=== PATIENT | male | born 1955 | race Caucasian/White ===

== ENCOUNTER 2021-10-11 13:03 | Outpatient (REF) | payer MEDICARE, SELFPAY ==
--- NOTE | ~2021-10-11 | MR_ITS ---
EXAMINATION: MRI OF THE BRAIN WITHOUT CONTRAST CLINICAL INFORMATION: 66-year-old with movement disorder, dyskinesia and suspicion for basal ganglia lesion. COMPARISON: None TECHNIQUE: Multiplanar multisequence MR imaging of the brain was done without IV contrast. FINDINGS: Brain Volume: Within normal limits within the limitations of qualitative assessment. 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 Brain and Meninges: There are moderately extensive patchy and punctate foci of FLAIR/T2 signal hyperintensity within the deep and periventricular white matter of both cerebral hemispheres with confluent periventricular T2 hyperintensity as well, which is somewhat T1 hypointense. These findings are most consistent with chronic ischemic microangiopathy. Chronic ischemic changes appear to extend into the deep capsular structures bilaterally and there is a chronic lacunar infarct bordering the genu of the right internal capsule, globus pallidus and ventromedial thalamus. Punctate T2 hyperintensities are noted in the lesly on the right also likely reflecting chronic ischemic microangiopathy. Gradient refocused imaging demonstrates no evidence for hemorrhage, hemosiderin staining or abnormal mineral deposition. No extra-axial fluid collections, space-occupying process or mass effect are identified. There is etat crible at the level of the basal ganglia bilaterally. DWI sequence demonstrates no restricted diffusion. Specifically, there is no evidence for acute or subacute cerebral ischemia. Ventricles and Subarachnoid Spaces: The ventricular system and subarachnoid spaces are within normal limits for the patient's age. There is no hydrocephalus. Orbital Structures: The visualized orbital structures are grossly unremarkable within the limitations of the study. Vascular: Signal voids are noted in the visualized major intracranial vessels. Osseous Structures, Sinuses/Mastoids, Extracranial Soft Tissues: There is some mucosal thickening in the frontal, ethmoid and maxillary sinuses with a 2 cm retention cyst in the left maxillary sinus. Nasal septal deviation to the right is noted. Visualized extracranial soft tissue structures are grossly unremarkable. Bone marrow signal intensity appears homogenous. MR/MR head/brain wo con IMPRESSION: 1. Chronic ischemic microangiopathy in the white matter of both cerebral hemispheres and deep capsular structures with a probable remote lacunar infarct in the deep right basal ganglia bordering the globus pallidus, genu of the right internal capsule and ventromedial thalamus. 2. No acute intracranial process. No evidence for subacute or acute infarct, hemorrhage, extra-axial fluid collection, space-occupying process, mass effect or hydrocephalus. 3. Sinonasal findings as discussed above.
== END 2021-10-11 13:04 | disposition home or self-care (01) ==
LOC: HO.MRI 13:03
PROVIDERS: Visit Provider Psychiatry & Neurology Neurology
DX: G24.9 Dystonia, unspecified (principal)
CPT/HCPCS: 70551

== ENCOUNTER → 2022-03-07 14:13 | Outpatient (BNVA) | payer MEDICARE, SELFPAY | PROVIDERS: PCP Internal Medicine; Visit Provider Psychiatry & Neurology Psychiatry | DX: F98.8 Other specified behavioral and emotional disorders with onset usually occurring in childhood and adolescence (principal); F32.5 Major depressive disorder, single episode, in full remission; E78.5 Hyperlipidemia, unspecified | CPT/HCPCS: 90833; 99212 ==

== ENCOUNTER → 2022-08-14 14:31 | Outpatient (BNVA) | payer MEDICARE, SELFPAY | PROVIDERS: PCP Internal Medicine; Visit Provider Psychiatry & Neurology Psychiatry | DX: F32.5 Major depressive disorder, single episode, in full remission (principal); F98.8 Other specified behavioral and emotional disorders with onset usually occurring in childhood and adolescence; Z79.899 Other long term (current) drug therapy | CPT/HCPCS: 99212 ==

== ENCOUNTER 2022-11-13 14:33 | Outpatient (AMB) | payer MEDICARE, SELFPAY ==
--- NOTE | 2022-11-13 14:28 | MHC.OFFVISPS ---
Intake Intake Visit Reasons: depression Allergies No Known Allergies Allergy (Verified 03/07/22 14:19) HPI- Psychiatric Chief Complaint: depression HPI Narrative: Pt has generally been doing well mood stable has difficulty at times staying busy enjoys bldg things does well with structure. No new medical problems some periods of mild melancholy at times but generally has been doing well. Unclear structure over the winter does tend to have seasonal depression continue sertraline modafinil. Movement disorder appears to be about the same according to the patient Past Psychiatric History: hx depression recurrent anxiety ADD Mental Status Exam Mental Status Exam Narrative: Mental Status Exam Narrative: Appearance: Casually dressed no abnormal movements facial tics or or dyskinesia noted on exam Behavior: Cooperative appropriate psychomotor: Within normal limits Speech: Normal volume and prosody Thought proccess logical and goal-directed Thought content: Future oriented no self-harming thoughts Mood: Euthymic Affect: Appropriate to mood full affect SI:denies HI:denies VH/AH:none Delusions: None Insight/judgment: Good insight and judgment Memory/cog: Intact Assessment and Plan Assessment & Plan (1) ADD (attention deficit disorder) without hyperactivity: Status: Acute Code(s): F98.8 - Other specified behavioral and emotional disorders with onset usually occurring in childhood and adolescence (2) Major depression in remission: Status: Acute Code(s): F32.5 - Major depressive disorder, single episode, in full remission Plan Issues related to need for plan and ongoing structure to help with quality of life prevent depressive symptoms continue modafinil in sertraline no new medical problems quality of life with his continues to go well Medications: Refilled modafinil 200 mg PO QAM 30 tabs 2RF sertraline 100 mg PO DAILY 30 tabs 2RF Counseling and coordination of Care Pt. Self Management counseling: Behavior activation and Cognitive restructuring Medication management counseling: Effectiveness, Side effects and Dosing range Diagnosis and Prognosis Counseling: Adequacy of current interventions Details: I spent [37] minutes reviewing the record, seeing the patient and documenting in the medical record. Counseling provided to the patient/caregiver as outlined below. Addressed patient/caregiver concerns regarding current medication regime including effective adherence. Addressed patient/caregiver concerns regarding diagnosis and prognosis including accuracy of diagnosis, prognosis over time, impact of diagnosis. Addressed patient/caregiver concerns regarding impact of recent stressors. 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
== END 2022-11-13 14:59 | disposition home or self-care (01) ==
LOC: HO.HOP 14:33
PROVIDERS: PCP Internal Medicine; Visit Provider Psychiatry & Neurology Psychiatry
DX: F98.8 Other specified behavioral and emotional disorders with onset usually occurring in childhood and adolescence (principal); F32.5 Major depressive disorder, single episode, in full remission
CPT/HCPCS: 99214

== ENCOUNTER → 2022-11-13 14:33 | Outpatient (BNVA) | payer MEDICARE, SELFPAY | PROVIDERS: PCP Internal Medicine; Visit Provider Psychiatry & Neurology Psychiatry | DX: F98.8 Other specified behavioral and emotional disorders with onset usually occurring in childhood and adolescence (principal); F32.5 Major depressive disorder, single episode, in full remission | CPT/HCPCS: 99212 ==

== ENCOUNTER 2023-04-29 14:28 | Outpatient (AMB) | payer MEDICARE, SELFPAY ==
--- NOTE | 2023-04-29 14:25 | MHC.OFFVISPS ---
Intake Intake Visit Reasons: depression Allergies No Known Allergies Allergy (Verified 03/07/22 14:19) Medication List - Last Reconciled 04/29/23 by Maxx Haynes MD atorvastatin 20 mg PO DAILY esomeprazole magnesium 40 mg PO DAILY modafinil 200 mg PO QAM pramipexole 1 mg PO QPM sertraline 100 mg PO DAILY warfarin mg PO HPI- Psychiatric Chief Complaint: depression Intake Note: bp reported 120/71 HPI Narrative: Patient generally doing well movement disorder appears stable not overly depressed or anxious. Has been doing well generally with his . 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 but appears occupied and future oriented doing well generally with sertraline and are modafinil no complaints side effects Past Psychiatric History: hx depression recurrent anxiety ADD Mental Status Exam Mental Status Exam Narrative: Mental Status Exam Narrative: Appearance: Casually dressed no abnormal movements facial tics or or dyskinesia noted on exam 04/29/23 Behavior: Cooperative appropriate psychomotor: Within normal limits Speech: Normal volume and prosody Thought proccess logical and goal-directed Thought content: Future oriented no self-harming thoughts Mood: Euthymic Affect: Appropriate to mood full affect SI:denies HI:denies VH/AH:none Delusions: None Insight/judgment: Good insight and judgment Memory/cog: Intact Assessment and Plan Assessment & Plan (1) ADD (attention deficit disorder) without hyperactivity: Status: Acute Code(s): F98.8 - Other specified behavioral and emotional disorders with onset usually occurring in childhood and adolescence (2) Major depression in remission: Status: Acute Code(s): F32.5 - Major depressive disorder, single episode, in full remission (3) Restless leg syndrome: Status: Acute Code(s): G25.81 - Restless legs syndrome Plan Issues related to correction structure ADD multiple things patient has done over the years. Patient currently content financially stable no significant symptoms wishes to continue on present regimen. No evidence of movement disorder worsening with sertraline and modafinil Medications: Refilled modafinil 200 mg PO QAM 30 tabs 2RF sertraline 100 mg PO DAILY 30 tabs 2RF modafinil 200 mg PO QAM 30 tabs 2RF Counseling and coordination of Care Details-Self Mgmt counseling: Issues related to correction Details: I spent [] minutes reviewing the record, seeing the patient and documenting in the medical record. Counseling provided to the patient/caregiver as outlined below. Addressed patient/caregiver concerns regarding current medication regime including effective adherence. Addressed patient/caregiver concerns regarding diagnosis and prognosis including accuracy of diagnosis, prognosis over time, impact of diagnosis. Addressed patient/caregiver concerns regarding impact of recent stressors. 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
== END 2023-04-29 14:30 | disposition home or self-care (01) ==
LOC: HO.HOP 14:28
PROVIDERS: PCP Internal Medicine; Visit Provider Psychiatry & Neurology Psychiatry
DX: F98.8 Other specified behavioral and emotional disorders with onset usually occurring in childhood and adolescence (principal); F32.5 Major depressive disorder, single episode, in full remission; G25.81 Restless legs syndrome
CPT/HCPCS: 90833; 99213

== ENCOUNTER → 2023-04-29 14:28 | Outpatient (BNVA) | payer MEDICARE, SELFPAY | PROVIDERS: PCP Internal Medicine; Visit Provider Psychiatry & Neurology Psychiatry | DX: F32.5 Major depressive disorder, single episode, in full remission (principal); F98.8 Other specified behavioral and emotional disorders with onset usually occurring in childhood and adolescence; G25.81 Restless legs syndrome; Z79.899 Other long term (current) drug therapy | CPT/HCPCS: 99212 ==

== ENCOUNTER 2023-10-16 13:39 | Outpatient (AMB) | payer MEDICARE, SELFPAY ==
--- NOTE | 2023-10-16 14:24 | MHC.OFFVISPS ---
Intake Intake Visit Reasons: depression Allergies No Known Allergies Allergy (Verified 03/07/22 14:19) HPI- Psychiatric Chief Complaint: depression HPI Narrative: Patient has generally been doing well mood mostly stable some periods of mild dysphoria. Does find ways to keep himself occupied enjoys home projects. Tick disorder seems to be generally in control doing well with modafinil in staying focused alert generally on task and with more consistent mood this is in addition to sertraline Past Psychiatric History: hx depression recurrent anxiety ADD Mental Status Exam Mental Status Exam Narrative: Mental Status Exam Narrative: Appearance: Casually dressed no abnormal movements noted no tics Behavior: Cooperative psychomotor: Within normal limits Speech: Normal volume and prosody Thought proccess logical and goal-directed Thought content: Future oriented no self-harming thoughts some acknowledgement regarding mild tendency toward depression Mood: Euthymic Affect: Appropriate to mood full affect SI:denies HI:denies VH/AH:none Delusions: None Insight/judgment: Good insight and judgment Memory/cog: Intact Assessment and Plan Assessment & Plan (1) ADD (attention deficit disorder) without hyperactivity: Status: Acute Code(s): F98.8 - Other specified behavioral and emotional disorders with onset usually occurring in childhood and adolescence (2) Major depression in remission: Status: Acute Code(s): F32.5 - Major depressive disorder, single episode, in full remission Plan no change in meds extensive discussion re health exercise eating role of exercise in control of mood energy ambition continue modafinil and sertraline. Also discussed with patient longer-term option if stable of having his primary care review his medications Medications: Refilled modafinil 200 mg PO QAM 30 tabs 2RF sertraline 100 mg PO DAILY 90 tabs 1RF modafinil 200 mg PO QAM 30 tabs 2RF Counseling and coordination of Care Pt. Self Management counseling: Exercise and Sleep hygiene Medication management counseling: Effectiveness, Side effects and Dosing range Diagnosis and Prognosis Counseling: Adequacy of current interventions Details: I spent [30] minutes reviewing the record, seeing the patient and documenting in the medical record. Counseling provided to the patient/caregiver as outlined below. Addressed patient/caregiver concerns regarding current medication regime including effective adherence. Addressed patient/caregiver concerns regarding diagnosis and prognosis including accuracy of diagnosis, prognosis over time, impact of diagnosis. Addressed patient/caregiver concerns regarding impact of recent stressors. 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
== END 2023-10-16 17:59 | disposition home or self-care (01) ==
LOC: HO.HOP 13:39
PROVIDERS: PCP Internal Medicine; Visit Provider Psychiatry & Neurology Psychiatry
DX: F98.8 Other specified behavioral and emotional disorders with onset usually occurring in childhood and adolescence (principal); F32.5 Major depressive disorder, single episode, in full remission
CPT/HCPCS: 99214

== ENCOUNTER → 2023-10-16 13:39 | Outpatient (BNVA) | payer MEDICARE, SELFPAY | PROVIDERS: PCP Internal Medicine; Visit Provider Psychiatry & Neurology Psychiatry | DX: F32.5 Major depressive disorder, single episode, in full remission (principal); F98.8 Other specified behavioral and emotional disorders with onset usually occurring in childhood and adolescence | CPT/HCPCS: 99212 ==

== ENCOUNTER 2024-02-03 11:35 | Outpatient (AMB) | payer MEDICARE, SELFPAY ==
--- NOTE | 2024-02-03 11:40 | MHC.OFFVISPS ---
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 Has not been going to [employer] .Has played pickleball in past. Some periods of mom blues but generally doing okay has difficult time creating structure. Patient feels modafinil has been helpful but tends to wear off sertraline continues to be useful. Stated he had somewhat improved functioning when he was on Ritalin but had developed tics Past Psychiatric History: hx depression recurrent anxiety ADD Mental Status Exam Mental Status Exam Narrative: Mental Status Exam Narrative: Appearance: Casually dressed no abnormal movements noted no tics Behavior: Cooperative psychomotor: Within normal limits Speech: Normal volume and prosody Thought proccess logical and goal-directed Thought content: Future oriented no self-harming thoughts some acknowledgement regarding mild tendency toward occ ruminating re structure Mood: Euthymic Affect: Appropriate to mood full affect SI:denies HI:denies VH/AH:none Delusions: None Insight/judgment: Good insight and judgment Memory/cog: Intact Assessment and Plan Assessment & Plan (1) Major depression in remission: Status: Acute Code(s): F32.5 - Major depressive disorder, single episode, in full remission (2) ADD (attention deficit disorder) without hyperactivity: Status: Acute Code(s): F98.8 - Other specified behavioral and emotional disorders with onset usually occurring in childhood and adolescence (3) Restless leg syndrome: Status: Acute Code(s): G25.81 - Restless legs syndrome Plan pt generally doing ok encourage more structure work,volunteering or other structure.tends to procrastinate chronic issue has tricks to work around this. 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 Self Management counseling: Exercise, Maintenance-social rhythm and Behavior activation Details-Self Mgmt counseling: issues related to procrastination dealing with ADD and chcf Medication management counseling: Effectiveness and Side effects Diagnosis and Prognosis Counseling: Accuracy of diagnosis and Adequacy of current interventions Details: I spent [40] minutes reviewing the record, seeing the patient and documenting in the medical record. Counseling provided to the patient/caregiver as outlined below. Addressed patient/caregiver concerns regarding current medication regime including effective adherence. Addressed patient/caregiver concerns regarding diagnosis and prognosis including accuracy of diagnosis, prognosis over time, impact of diagnosis. Addressed patient/caregiver concerns regarding impact of recent stressors. 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
== END 2024-02-03 12:08 | disposition home or self-care (01) ==
LOC: HO.HOP 11:35
PROVIDERS: PCP Internal Medicine; Visit Provider Psychiatry & Neurology Psychiatry
DX: F32.5 Major depressive disorder, single episode, in full remission (principal); F98.8 Other specified behavioral and emotional disorders with onset usually occurring in childhood and adolescence; G25.81 Restless legs syndrome
CPT/HCPCS: 90833; 99213

== ENCOUNTER → 2024-02-03 11:35 | Outpatient (BNVA) | payer MEDICARE, SELFPAY | PROVIDERS: PCP Internal Medicine; Visit Provider Psychiatry & Neurology Psychiatry | DX: F32.5 Major depressive disorder, single episode, in full remission (principal); F98.8 Other specified behavioral and emotional disorders with onset usually occurring in childhood and adolescence; G25.81 Restless legs syndrome | CPT/HCPCS: 99212 ==

== ENCOUNTER → 2024-04-27 14:52 | Outpatient (BNVA) | payer MEDICARE, SELFPAY | PROVIDERS: PCP Internal Medicine; Visit Provider Psychiatry & Neurology Psychiatry | DX: F32.5 Major depressive disorder, single episode, in full remission (principal); G25.81 Restless legs syndrome; F98.8 Other specified behavioral and emotional disorders with onset usually occurring in childhood and adolescence | CPT/HCPCS: 99212 ==

== ENCOUNTER 2024-11-04 12:12 | Outpatient (AMB) | payer MEDICARE, SELFPAY ==
--- NOTE | 2024-11-04 12:30 | MHC.OFFVISPS ---
Intake Vital Signs 11/04/24 15:51 BP 126/84 Pulse 74 Intake Visit Reasons: depression Allergies No Known Allergies Allergy (Verified 03/07/22 14:19) Medication List - Last Reconciled 12/12/24 by Maxx Haynes MD atorvastatin 20 mg PO DAILY esomeprazole magnesium 40 mg PO DAILY modafinil 400 mg (2 x 200 mg) PO DIRECTED 90 days pramipexole 1 mg PO QPM sertraline 100 mg PO DAILY warfarin mg PO HPI- Psychiatric Chief Complaint: depression HPI Narrative: Patient seen psychiatric follow-up. Patient's ADD depressive and anxiety symptoms are generally in control. He has [employer] his social engaged feels good about detention. Mood stable no abnormal movements noted by patient that seems to have disappeared. He continues to feel modafinil pramipexole and sertraline are effective for him regarding mood attention and restlessness. No change in physical status no complaints of side effects. Patient has been on increased dose of modafinil 200 b.i.d. this has been quite helpful we have also discussed if not needed he could at times lower the dose. History of being on Adderall in the past was discontinued blood pressure stable adequately controlled Past Psychiatric History: hx depression recurrent anxiety ADD Mental Status Exam Mental Status Exam Narrative: Mental Status Exam Narrative: Appearance: Casually dressed no abnormal movements noted no tics or dystonic movements Behavior: Cooperative psychomotor: Within normal limits Speech: Normal volume and prosody Thought proccess logical and goal-directed Thought content: Future oriented feeling good about current life situation Feels like current regimen is quite helpful for him Mood: Euthymic Affect: Appropriate to mood full affect SI:denies HI:denies VH/AH:none Delusions: None Insight/judgment: Good insight and judgment Memory/cog: Intact Assessment and Plan Assessment & Plan (1) Major depression in remission: Status: Acute Code(s): F32.5 - Major depressive disorder, single episode, in full remission (2) ADD (attention deficit disorder) without hyperactivity: Status: Acute Code(s): F98.8 - Other specified behavioral and emotional disorders with onset usually occurring in childhood and adolescence Plan Risks benefits alternatives discussed with patient including palpitations increased blood pressure with modafinil at 400 mg patient tolerating dose Discussed issues related detention maintaining mood and social rhythm Medications: Refilled sertraline 100 mg PO DAILY 90 tabs 1RF modafinil 1 tab in the am 1 noon hold if palpitations 400 mg (2 x 200 mg) PO DIRECTED 180 tabs 1RF 90 days Counseling and coordination of Care Pt. Self Management counseling: Light exposure, Behavior activation and General coping skills Medication management counseling: Effectiveness, Side effects and Dosing range Diagnosis and Prognosis Counseling: Adequacy of current interventions Details: I spent [38] minutes reviewing the record, seeing the patient and documenting in the medical record. Counseling provided to the patient/caregiver as outlined below. Addressed patient/caregiver concerns regarding current medication regime including effective adherence. Addressed patient/caregiver concerns regarding diagnosis and prognosis including accuracy of diagnosis, prognosis over time, impact of diagnosis. Addressed patient/caregiver concerns regarding impact of recent stressors. 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
--- OUTSIDE RECORDS SUMMARY | 2024-11-04 12:32 | XMS_ITS | Clinical Summary ---
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 Name Role Phone Unavailable Primary Care Provider Unavailabl e Social History Tobacco Use Types Packs/Day Years Used Date Smoking Tobacco: Never Assessed Sex and Gender Information Value Date Recorded Sex Assigned at Not on file Legal Sex Male 11:35 AM EDT Gender Identity Not on file Sexual Orientation Not on file Plan of Treatment Health Maintenance Due Date Last Done Comments Hepatitis C Virus Screening 1955 DTaP/Tdap/Td Vaccines (1 - Tdap) 1973 Pneumococcal Vaccines 50+ (1 of 1 - PCV) 2004 Zoster (Shingles) Vaccine (1 of 2) 2004 COVID-19 Vaccine ( - 2023-2 5 season) 2023 RSV Vaccine 60 years and old er and Patients (1 - 1-dose 75+ series) 2029 Hepatitis B Vaccines Aged Out No long er eligible based on patient's age to complete this topic
--- OUTSIDE RECORDS SUMMARY | 2024-11-04 12:32 | XMS_ITS | Clinical Summary ---
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
--- OUTSIDE RECORDS SUMMARY | 2024-11-04 12:32 | XMS_ITS | Clinical Summary ---
Author Organization LL [address] 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 06/01/2016 Active esomeprazole (NexIUM) [address] capsule Take 1 capsule (40 mg total) by mouth. 06/01/2016 Active methylphenidate (RITALIN) 20 mg tablet Take 1 tablet (20 mg total) by mouth. 06/01/2016 Active sertraline (ZOLOFT) 100 mg tablet Take 1 tablet (100 mg total) by mouth. 06/01/2016 Active warfarin (COUMADIN) 2.5 mg tablet See Instructions , 2 tablet daily on MWF and 1 tablet tues, thur, sat and sun, 0 Refills, Maintenance, 06/01/16 13:57:25, Tablet 06/01/2016 Active Active Problems Problem Noted Date Diagnosed Date Morbid obesity (CMS/HCC V24, CMS/HCC V28) 2024 Class 1 obesity 08/26/2024 GERD (gastroesophageal reflux disease) Rodas's esophagus 08/26/2024 Paraesophageal hiatal hernia 08/26/2024 Pulmonary nodule 08/26/2024 Nicotine addiction 08/26/2024 Encounters Date Type Department Care Team Description 09/06/2024 11:30 AM EDT [facility] [address] [facility] [address] [place] [address] Amber Kramer MD Pulmonary nodule (Primary Dx); Gastroesophageal reflux disease without esophagitis; Paraesophageal hiatal hernia; Morbid obesity ([facility]/HCC V24, CMS/HCC V28) [facility] [address] [address] Myrna Srinivasan MA from Last 3 Months Social History Tobacco Use Types Packs/Day Years Used Date Smoking Tobacco: Unknown Tobacco Cessation:Counseling Given: Not Answered Sex and Gender Information Value Date Recorded Sex Assigned at Not on file Legal Sex Male 1:36 AM EST Gender Identity Not on file Sexual Orientation Not on file Obstetrics History Last Filed Vital Signs Vital Sign Reading Time Taken Comments Blood Pressure 127/69 09/06/2024 11:49 AM EDT Pulse 69 09/06/2024 11:49 AM EDT Temperature 36.7 C (98 F) 09/06/2024 11:49 AM EDT Respiratory Rate 20 09/06/2024 11:49 AM EDT Oxygen Saturation 97% 09/06/2024 11:49 AM EDT Inhaled Oxygen Concentration - - Weight 95.4 kg (210 lb 6.4 oz) 09/06/2024 11:49 AM EDT Height 167.6 cm (5' 6 ) 09/06/2024 11:49 AM EDT Body Mass Index 33.96 09/06/2024 11:49 AM EDT Plan of Treatment Upcoming Encounters Date Type Department Care Team (Late st Contact Info) Description 09/06/2025 11:30 AM EDT [facility] [address] [address] Amber Kramer MD [address] [address] Health Maintenance Due Date Last Done Comments Pneumococcal Vaccine: 50+ Years (1 of 1 - PCV) 2004 Abdominal Aortic Aneurysm (AAA) Screen 03/03/2022 Cholesterol Screening (Lipid Panel) 03/03/2022 Colorectal Cancer Screening: Colonoscopy 03/03/2022 Falls Risk Assessment 03/03/2022 Hepatitis C Screening 03/03/2022 Medicare Annual Wellness Visit 03/03/2022 Social Influencers of Health Screening 03/03/2022 COVID-19 Vaccine ( season) 2023 10/08/2023, 01/01/2023, 01/02/2022, Additional history exists Depression Screening 03/31/2024 Influenza Vaccine (#1) 2024 , 01/01/2023, 01/02/2022, Additional history exists RSV Immunization Adult Patients (1 - 1-dose 75+ series) 2029 DTaP,Tdap,and Td Vaccines (2 - Td or Tdap) 01/03/2031 01/03/2021 Zoster Vaccines Completed 06/17/2022, 01/07/2022 HIB Vaccines Aged Out No longer eligi ble based on patient's age to complete this topic HPV Vaccines Aged Out No longer eligi ble based on patient's age to complete this topic Hepatitis A Vaccines Aged Out No long er eligible based on patient's age to complete this topic Hepatitis B Vaccines Aged Out No long er eligible based on patient's age to complete this topic IPV Vaccines Aged Out No longer eligi ble based on patient's age to complete this topic MMR Vaccines Aged Out No longer eligi ble based on patient's age to complete this topic Meningococcal ACWY Vaccine Aged Out N o longer eligible based on patient's age to complete this topic Meningococcal B Vaccine Aged Out No l onger eligible based on patient's age to complete this topic RSV Immunization Patients Under 20 months Aged Out No longer eligible based on patient's age to complete this topic Varicella Vaccines Aged Out No longer eligible based on patient's age to complete this topic Procedures Procedure Name Priority Date/Time Associated Diagnosis Comments CT LUNG SCREENING Routine 09/01/2024 3:33 PM EDT from Last 3 Months Results * CT Lung Screening (09/01/2024 3:33 PM EDT) Anatomical Region Laterality Modality Chest Computed Tomogra phy us Amber Kramer MD IMG CT PROCEDURES Final Resu lt from Last [address] [facility] Care Teams Bench Molder Apprentice Relationship Specialty Start Date End Date Shan Badillo MD [address] [place] [address] PCP - General 08/06/22
[2024-11-04 15:51] VITALS: BP 126/84; PULSE 74
== END 2024-11-04 13:50 | disposition home or self-care (01) ==
LOC: HO.HOP 12:12
PROVIDERS: PCP Internal Medicine; Visit Provider Psychiatry & Neurology Psychiatry
DX: F32.5 Major depressive disorder, single episode, in full remission (principal); F98.8 Other specified behavioral and emotional disorders with onset usually occurring in childhood and adolescence
CPT/HCPCS: 90833; 99213

== ENCOUNTER → 2024-11-04 12:12 | Outpatient (BNVA) | payer MEDICARE, SELFPAY | PROVIDERS: PCP Internal Medicine; Visit Provider Psychiatry & Neurology Psychiatry | DX: F32.5 Major depressive disorder, single episode, in full remission (principal); F98.8 Other specified behavioral and emotional disorders with onset usually occurring in childhood and adolescence | CPT/HCPCS: 99212 ==

== ENCOUNTER 2025-03-15 14:09 | Outpatient (AMB) | payer MEDICARE, SELFPAY ==
--- NOTE | 2025-03-15 14:28 | MHC.OFFVISPS ---
Intake Intake Visit Reasons: depression Allergies No Known Allergies Allergy (Verified 03/07/22 14:19) Medication List - Last Reconciled 03/15/25 by Maxx Haynes MD atorvastatin 20 mg PO DAILY esomeprazole magnesium 40 mg PO DAILY modafinil 400 mg (2 x 200 mg) PO DIRECTED 90 days pramipexole 1 mg (2 x 0.5 mg) PO QPM 90 days sertraline 100 mg PO DAILY warfarin mg PO HPI- Psychiatric Chief Complaint: depression HPI Narrative: Patient seen psychiatric follow-up. Patient's history of ADD, tic disorder past history of recurrent depression. Patient has generally been stable combination of sertraline and modafinil. No complaints of side effects. Patient has been retired no complaints. Mood stable no current medical concerns. Past Psychiatric History: hx depression recurrent anxiety ADD Mental Status Exam Mental Status Exam Narrative: Mental Status Exam Narrative: Mental Status Exam Narrative: Appearance: Casually dressed no abnormal movements noted no tics or dystonic movements Behavior: Cooperative psychomotor: Within normal limits Speech: Normal volume and prosody Thought proccess logical and goal-directed Thought content: Future oriented feeling good about current life situation Feels like current regimen is quite helpful for him Mood: Euthymic Affect: Appropriate to mood full affect SI:denies HI:denies VH/AH:none Delusions: None Insight/judgment: Good insight and judgment Memory/cog: Intact Assessment and Plan Assessment & Plan (1) Major depression in remission: Status: Acute Code(s): F32.5 - Major depressive disorder, single episode, in full remission (2) ADD (attention deficit disorder) without hyperactivity: Status: Acute Code(s): F98.8 - Other specified behavioral and emotional disorders with onset usually occurring in childhood and adolescence Plan Continue sertraline and modafinil patient stable discussed having follow-up with his primary care physician as possible. No changes no complaints of side effects. Modafinil has been used off-label instead of amphetamines Medications: Refilled modafinil 1 tab in the am 1 noon hold if palpitations 400 mg (2 x 200 mg) PO DIRECTED 180 tabs 1RF 90 days sertraline 100 mg PO DAILY 90 tabs 1RF Counseling and coordination of Care Medication management counseling: Effectiveness and Side effects Diagnosis and Prognosis Counseling: Adequacy of current interventions Details: I spent [30] minutes reviewing the record, seeing the patient and documenting in the medical record. Counseling provided to the patient/caregiver as outlined below. Addressed patient/caregiver concerns regarding current medication regime including effective adherence. Addressed patient/caregiver concerns regarding diagnosis and prognosis including accuracy of diagnosis, prognosis over time, impact of diagnosis. Addressed patient/caregiver concerns regarding impact of recent stressors. 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
--- OUTSIDE RECORDS SUMMARY | 2025-03-15 18:21 | XMS_ITS | Clinical Summary ---
Author Organization [facility] Address [address] [place] [address] Care Team Providers Care Firefighter Marine Name Role Phone Unavailable Primary Care Provider Unavailabl e Social History Tobacco Use Types Packs/Day Years Used Date Smoking Tobacco: Never Assessed Sex and Gender Information Value Date Recorded Sex Assigned at Not on file Legal Sex Male 11:35 AM EDT Gender Identity Not on file Sexual Orientation Not on file Plan of Treatment Health Maintenance Due Date Last Done Comments Advance Care Planning 1955 Hepatitis C Virus Screening 1955 DTaP/Tdap/Td Vaccines (1 - Tdap) 1973 Pneumococcal Vaccines 50+ (1 of 1 - PCV) 2004 Zoster (Shingles) Vaccine (1 of 2) 2004 COVID-19 Vaccine ( - 2024-2 6 season) 2024 RSV Vaccine 50 years and old er and Patients (1 - 1-dose 75+ series) 2029 Hepatitis B Vaccines Aged Out No long er eligible based on patient's age to complete this topic
--- OUTSIDE RECORDS SUMMARY | 2025-03-15 18:21 | XMS_ITS | Clinical Summary ---
Author Organization [address] Address [address] [place] [address] Phone Care Team Providers Care Garment Liner Name Role Phone Shan Badillo MD Primary Care Provider [phone] Medications atorvastatin (LIPITOR) 20 mg tablet Take [...] Problem Noted Date Diagnosed Date Morbid obesity 09/06/2024 Class 1 obesity 08/26/2024 GERD (gastroesophageal reflux disease) Rodas's esophagus 08/26/2024 Paraesophageal hiatal hernia 08/26/2024 Pulmonary nodule 08/26/2024 Nicotine addiction 08/26/2024 Social History Tobacco Use Types Packs/Day Years Used Date Smoking Tobacco: Unknown Tobacco Cessation:Counseling Given: Not Answered Sex and Gender Information Value Date Recorded Sex Assigned at Not on file Legal Sex Male 1:36 AM EST Gender Identity Not on file Sexual Orientation Not on file Last Filed Vital Signs Vital Sign Reading [...] Description 09/06/2025 11:30 AM EDT Office Visit Pulmonology - [address] [place] [phone] Amber Kramer MD [address] [place] [phone] Health Maintenance Due Date Last Done Comments Colorectal Cancer Screening: Colonoscopy 1955 Pneumococcal Vaccine: 50+ Years (1 of 1 - PCV) 2004 Abdominal Aortic Aneurysm (AAA) Screen 03/03/2022 Cholesterol Screening (Lipid Panel) 03/03/2022 Falls Risk Assessment 03/03/2022 Hepatitis C Screening 03/03/2022 Medicare Annual Wellness Visit 03/03/2022 Social Influencers of Health Screening 03/03/2022 Depression Screening 03/31/2024 COVID-19 Vaccine ( season) 2024 10/08/2023, 01/01/2023, 01/02/2022, Additional history exists Influenza Vaccine (#1) 2024 , 01/01/2023, 01/02/2022, [...] on patient's age to complete this topic Insurance MEDICARE [facility] Care Teams Garment Liner Relationship Specialty Start Date End Date Shan Badillo MD [address] [place] [address] [facility] - General 08/06/22
--- OUTSIDE RECORDS SUMMARY | 2025-03-15 18:22 | XMS_ITS | Clinical Summary ---
Author Organization [facility] Address [address] [place] [id number] Care Team Providers Care Radiology Orderly Name Role Phone Unavailable Primary Care Provider [...]
--- OUTSIDE RECORDS SUMMARY | 2025-03-15 18:22 | XMS_ITS | Patient Health Record ---
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 Vivian KITCHEN MA 04:36:38 PM > all necessary info has been faxed Referral Priority Routine Medications Medication SIG (Take, Route, Frequency, Duration) Notes Start Date End Date Status Zoloft 100 MG Tablet 1 tab(s) orally onc e daily Active Cialis 20 MG Tablet 1 tab(s) orally q48h prn Active Warfarin Sodium 2.5 MG Tablet TAKE 2 TAB LETS ON FRIDAY,FRI, AND FRIDAYS, AND TAKE 1 TABLET OTHER DAY DIRECTED BY MD; Duration: 39 Active Esomeprazole Magnesium 40 MG Capsule Delayed Release TAKE ONE CAPSULE BY MOUTH EVERY DAY Active L-Methylfolate 15 MG Tablet 1 tablet Ora lly Once a day; Duration: 30 day(s) Active Atorvastatin Calcium 20 MG Tablet TAKE 1 TABLET BY MOUTH EVERY DAY; Duration: 90 Active Modafinil 200 MG Tablet 1 tablet in the morning Orally Once a day Active ONE A DAY MEN'S COMPLETE Active Pramipexole Dihydrochloride 0.5 MG Tablet 2 tablet Orally Once a day Active Immunizations Vaccine Route Administration Date Status Comme nts FLU- FLUVIRIN, PRE-FILLED SYRINGE 0.5 ml IM Intramuscular 05/28/2013 Administered H1N1 inactivated injectable IM Intramuscular 03/10/2009 Administered Influenza IM Intramuscular 03/10/2009 Administered Influenza IM Intramuscular 03/08/2011 Administered Influenza Vaccine[158] IM Intramuscular 01/07/2020 Adminis tered Influenza, Fluzone HD 65+ IM Intramuscular 07/06/2021 Admi nistered Influenza, Fluzone Quad IM Intramuscular 04/07/2015 Admini stered Influenza, Fluzone QUAD, 3+ yrs, IM Intramuscular 01/03/2017 Administered Influenza, Fluzone QUAD, 3+ yrs, IM Intramuscular 04/16/2019 Administered Moderna COVID-19 mRNA LNP-S PF IM Intramuscular 05/03/2020 Administered Moderna COVID-19 mRNA LNP-S PF IM Intramuscular 05/27/2020 Administered Pneumococcal Prevnar 13 IM Intramuscular 06/12/2020 Admini stered Pneumococcal, PPV 23 IM Intramuscular 08/28/2007 Administe red [id number] IM Intramuscular 11/09/2024 Administered PPD read Unknown 06/21/2016 Administered PPD, TB Intradermal Test ID Intradermal 06/19/2016 Adminis tered Tdap (Adacel) IM Intramuscular 11/07/2017 Administered Tdap (Adacel)11-64,State Supplied Unknown 08/28/2007 Administered Social History Tobacco Use: Social History Observation Description Date Details (start date - stop date) Former Smoker NA - NA Social History Tobacco Use: Social Info Question Answer Notes Smoking Are you a: former smoker Additional Details Category Social Info Options Details 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 Past year's travels: None 2023 alcohol use: yes rarely drug use: yes marijuana rarely Hobbies/Exercise habits: likes t o golf when he can Coffee/Tea/Soda: yes 24-36 oz coffee daily, occ iced tea; no soda Marital Status experience no Living with Pets 1 dog smokers in household no Section Notes: 1/2 ppd x 43 years; quit 1/2 ppd x 43 years; quit 2 ppd x 43 years; quit 04/01 ppd x 43 years; quit 04/01 ppd x 43 years; quit 04/01 ppd x 43 years; quit 2 ppd x 43 years; quit 04/01 ppd x 43 years; quit 2 ppd x 43 years-stopped 05/14 1 ppd x 43 years 04/01 ppd x 43 years; quit 04/01 ppd x 43 years; quit 04/01 ppd x 43 years; quit 04/01 ppd x 43 years; quit 04/01 ppd x 43 years; quit 04/01 ppd x 43 years 04/01 ppd x 43 years-stopped 05/14 1 ppd x 43 years; quit 04/01 ppd x 43 years; quit 04/01 ppd x 43 years; quit 04/01 ppd x 43 years; quit 04/01 ppd x 43 years; quit 04/01 ppd x 43 years; quit 04/01 ppd x 43 years; quit 20152 ppd x 43 years; quit 04/01 ppd x 43 years 2 ppd x 43 years 2 ppd x 43 years; quit 1/2 ppd x 43 years; quit 1/2 ppd x 43 years; quit 04/01 ppd x 43 years; quit 04/01 ppd x 43 years; quit 04/01 ppd x 43 years /2 ppd x 43 years; quit Problems Problem Type SNOMED Code ICD Code Onset Dates Problem Status W/U Status Risk Notes Problem Pulmonary embolism with infarction (1732691567571) Pulmonary embolism and infarction, other (415.19) Active confirmed Problem Dysphagia (55774936) Dysphagia (438.82) Active confirmed Problem Gastroesophageal reflux disease (disorder) (928578856) GERD [Gastroesophageal reflux disease] (530.81) Active confirmed Problem Hypercholesterolemia (18936387) Hypercholesterolemia (272.0) Active confirmed Problem Erectile dysfunction (disorder) (427209144) Impotence (302.72) Active confirmed Problem Trigger finger (3794575) Trigger finger (727.03) Active confirmed Problem De Leon's esophagus (721443401) De Leon's esophagus (530.85) Active confirmed Problem Chest pain (90366335) CHEST PAIN NOS (786.50) Active confirmed Problem Palpitations (28867896) Palpitation (R00.2) Active confirmed Problem Gastro-esophageal reflux disease without esophagitis (931427400) Gastro-esophageal reflux disease without esophagitis (K21.9) Active confirmed Problem General examination of patient (891353921) Routine medical exam (Z00.00) Active confirmed Problem Hypercholesterolemia (09512675) Hypercholesterolemia (E78.0) Active confirmed Problem Obstructive sleep apnea syndrome (25397192) HEIDY (obstructive sleep apnea) (G47.33) Active confirmed Problem Barretts esophagus (962832591) Barretts esophagus (K22.70) Active confirmed Problem Gross hematuria (148171686) Gross hematuria (R31.0) Active confirmed Problem Therapeutic drug monitoring, quantitative (regime/therapy) (95737528) Encounter for therapeutic drug level monitoring (Z51.81) Active confirmed Problem Long-term current us e of anticoagulant (518774405) 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 (Z79.01) Active confirmed Problem Tobacco dependence i n remission (663064524) Tobacco abuse, in remission (F17.201) Active confirmed Problem Ex-tobacco user (finding) (898153699) History of tobacco abuse (Z87.891) Active confirmed Problem Erectile dysfunction (disorder) (774660811) Impotence (N52.9) Active confirmed Problem Chronic fatigue syndrome (09221974) Chronic fatigue (R53.82) Active confirmed Problem Obese class I (773367811514184) BMI 33.0-33.9,adult (Z68.33) Active confirmed Problem Elevated blood pressure (37815544) Elevated BP (I10) Active confirmed Problem Major depression in remission (64126119) 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) Active confirmed Problem BMI 30+ - obesity (080203976) BMI 32.0-32.9,adult (Z68.32) Active confirmed Problem Diastolic dysfunctio n (2909173) Diastolic dysfunction (I51.9) Active confirmed Problem Pulmonary embolism with pulmonary infarction (9417278981340) Pulmonary embolism and infarction (I26.99) Active confirmed Problem Pulmonary embolism (79739595) Pulmonary embolism (I26.99) Active confirmed Problem Anemia (766707676) Anemia, unspe cified type (D64.9) Active confirmed Problem Depressive disorder (disorder) (50577063) Depression, unspecified depression type (F32.9) Active confirmed Problem Atrial fibrillation (20071900) A-fib (I48.91) Active confirmed Problem Pure hypercholesterolemia (331488799) Elevated cholesterol (E78.00) Active confirmed Problem Pulmonary hypertension (90426516) Pulmonary HTN (I27.20) Active confirmed Vital Signs Blood pressure diastolic 62 mm Hg 11/09/2024 Height 65.5 in 11/09/2024 Blood pressure systolic 130 mm Hg 11/09/2024 Weight 213.4 lbs 11/09/2024 BMI 34.97 kg/m2 11/09/2024 Encounters Encounter Location Date Provider Diagnosis [address] [address] 03/16/2024 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 Rash R21 ; Elevated cholesterol E78.00 ; Irritant contact dermatitis due to metals L24.81 ; COVID-19 U07.1 ; Pulmonary embolism I26.99 ; Elevated BP I10 ; Impotence N52.9 ; Barretts esophagus K22.70 ; HEIDY (obstructive sleep apnea) G47.33 ; Diastolic dysfunction I51.9 ; Gross hematuria R31.0 ; Callus of foot L84 ; BMI 33.0-33.9,adult Z68.33 ; Tobacco abuse, in remission F17.201 ; Anemia, unspecified type D64.9 ; Major depression in remission F32.5 ; Pulmonary HTN I27.20 and Pain, joint, knee, right M25.[address] [address] 03/22/2024 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 Z79.01 and Encounter for therapeutic drug level monitoring Z51.[address] [address] 03/26/2024 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 Sinus symptom R09.[address] [address] 03/30/2024 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 Z79.01 and Encounter for therapeutic drug level monitoring Z51.81 [facility] [address] [place] [phone] 04/06/2024 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 detention (current) use of 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 Z79.01 and Encounter for therapeutic drug level monitoring Z51.81 [facility] [address] [place] [phone] 04/21/2024 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 Z79.01 and Encounter for therapeutic drug level monitoring Z51.[address] [address] 05/12/2024 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 Z79.01 and Encounter for therapeutic drug level monitoring Z51.[address] [address] 06/09/2024 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 Z79.01 and Encounter for therapeutic drug level monitoring Z51.[address] [address] 07/13/2024 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 Z79.01 and Encounter for therapeutic drug level monitoring Z51.[address] [address] 07/21/2024 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 Z79.01 and Encounter for therapeutic drug level monitoring Z51.[address] [address] 07/27/2024 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 Z79.01 and Encounter for therapeutic drug level monitoring Z51.[address] [address] 08/04/2024 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 Lumbar back pain M54.[address] [address] 08/04/2024 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 Z79.01 and Encounter for therapeutic drug level monitoring Z51.[address] [address] 08/25/2024 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 detention (current) use of 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 Z79.01 and Encounter for therapeutic drug level monitoring Z51.[address] [address] 09/14/2024 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 detention (current) use of 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 Z79.01 and Encounter for therapeutic drug level monitoring Z51.[address] [address] 09/21/2024 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 Z79.01 and Encounter for therapeutic drug level monitoring Z51.[address] [address] 09/27/2024 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 Z79.01 and Encounter for therapeutic drug level monitoring Z51.[address] [address] 10/12/2024 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9,adult Z68.33 ; Tobacco abuse, in remission F17.201 ; Major depression in remission F32.5 ; Pulmonary HTN I27.20 and Pain, joint, knee, right M25.[address] [address] 11/09/2024 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 Medicare annual wellness visit, subsequent Z00.[address] [address] 11/09/2024 [facility] Encounter for immunization Z23 [address] [address] 12/02/2024 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 Z79.01 and Encounter for therapeutic drug level monitoring Z51.81 [facility] [address] [place] [address] 01/04/2025 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 detention (current) use of 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 Z79.01 and Encounter for therapeutic drug level monitoring Z51.81 [facility] [address] [place] [address] 01/31/2025 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 detention (current) use of 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 Z79.01 and Encounter for therapeutic drug level monitoring Z51.81 [facility] [address] [place] [address] 02/07/2025 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 detention (current) use of 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 Z79.01 and Encounter for therapeutic drug level monitoring Z51.[address] [address] 02/14/2025 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 detention (current) use of 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 Z79.01 and Encounter for therapeutic drug level monitoring Z51.[address] [address] 02/28/2025 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 detention (current) use of 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 Z79.01 and Encounter for therapeutic drug level monitoring Z51.[address] [address] 03/25/2024 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 [facility] [address] [address] 03/26/2024 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 [facility] [address] [address] 06/08/2024 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 Pulmonary embolism a nd infarction I26.99 [facility] [address] [place] [phone] 07/09/2024 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 Screening for lung cancer Z12.2 [facility] [address] [address] 07/13/2024 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 [facility] [address] [address] 07/29/2024 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 [facility] [address] [address] 08/16/2024 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 [facility] [address] [address] 08/31/2024 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 [facility] [address] [place] [address] 09/28/2024 [facility] [address] [place] [address] 11/09/2024 [facility] [address] [place] [phone] 11/18/2024 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 Assessments Encounter Date Diagnosis (ICD Code) Assessment Notes Treatment Notes Treatment Clinical Notes Section Notes 01/31/2025 Encounter for therapeutic drug level monitoring (ICD-10 - Z51.81) 01/31/2025 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 Patient counseled and given VIS sheet for review. 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 (ICD-10 - Z79.01) reviewed INR from 09/13/2024 and current dose along with new dosing/recheck instruction 07/27/2024 detention (current) use of 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 (ICD-10 - Z79.01) reviewed INR from 07/27/2024 and current dose along with new dosing/recheck instruction 03/30/2024 Encounter for therapeutic drug level monitoring (ICD-10 - Z51.81) 03/30/2024 detention (current) use of 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 (ICD-10 - Z79.01) reviewed INR from 03/29/2024 and current dose along with new dosing/recheck instruction 11/01/2024 detention (current) use of 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 (ICD-10 - Z79.01) reviewed INR from 11/01/2024 and current dose along with new dosing/recheck instruction 04/06/2024 detention (current) use of 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 (ICD-10 - Z79.01) reviewed INR from today and current dose along with new dosing/recheck instruction 04/21/2024 Encounter for therapeutic drug level monitoring (ICD-10 - Z51.81) 04/21/2024 detention (current) use of 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 (ICD-10 - Z79.01) reviewed INR from 04/20/2024 and current dose along with new dosing/recheck instruction 05/12/2024 Encounter for therapeutic drug level monitoring (ICD-10 - Z51.81) 05/12/2024 detention (current) use of 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 (ICD-10 - Z79.01) reviewed INR from 05/11/2024 and current dose along with new dosing/recheck instruction 06/09/2024 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 (ICD-10 - Z79.01) reviewed INR from 06/08/2024 and current dose along with new dosing/recheck instruction 07/09/2024 Screening for lung cancer (ICD-10 - Z12.2) 08/04/2024 detention (current) use of 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 (ICD-10 - Z79.01) reviewed INR from 08/03/2024 and current dose along with new dosing/recheck instruction 08/25/2024 Encounter for therapeutic drug level monitoring (ICD-10 - Z51.81) 08/25/2024 detention (current) use of 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 (ICD-10 - Z79.01) reviewed INR from 08/24/2024 and current dose along with new dosing/recheck instruction 09/27/2024 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 (ICD-10 - Z79.01) reviewed INR from 09/27/2024 and current dose along with new dosing/recheck instruction 10/12/2024 Encounter for therapeutic drug level monitoring (ICD-10 - Z51.81) 10/12/2024 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 (ICD-10 - Z79.01) reviewed INR from 10/11/2024 and current dose along with new dosing/recheck instruction 07/21/2024 detention (current) use of 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 (ICD-10 - Z79.01) reviewed INR from 07/20/2024 and current dose along with new dosing/recheck instruction 08/04/2024 Lumbar back pain (ICD-10 - M54.50) prob strain; warm compress/BenGay qid; declines pain med/muscle relaxant, imaging; pt to start PT 11/09/2024 Elevated cholesterol (ICD-10 - E78.00) low fat/cholesterol diet reviewed 11/09/2024 Lumbar back pain (ICD-10 - M54.50) resolved 11/09/2024 Medicare annual wellness visit, subsequent (ICD-10 - Z00.00) Health Risk Assessment form reviewed with patient and scanned into chart 12/02/2024 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 (ICD-10 - Z79.01) reviewed INR from 12/01/2024 and current dose along with new dosing/recheck instruction 01/04/2025 detention (current) use of 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 (ICD-10 - Z79.01) spoke with pt - reviewed INR from 01/03/2025 and current dose along with new dosing/recheck instruction 02/07/2025 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 (ICD-10 - Z79.01) spoke with pt - reviewed INR from today and current dose (3.75 mg MW, 2.5 mg others) along with new dosing (3.75 mg MWF, 2.5 mg others)/recheck instruction (1 week) 02/14/2025 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 (ICD-10 - Z79.01) spoke with pt - reviewed INR from today and current dose (3.75 mg MWF, 2.5 mg others) along with new dosing (same)/recheck instruction (2 weeks) 02/28/2025 detention (current) use of 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 (ICD-10 - Z79.01) spoke with pt - reviewed INR from today and current dose (3.75 mg MWF, 2.5 mg others) along with new dosing (same)/recheck instruction (3 weeks) 07/13/2024 Encounter for therapeutic drug level monitoring (ICD-10 - Z51.81) 07/13/2024 detention (current) use of 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 (ICD-10 - Z79.01) reviewed INR from 07/12/2024 and current dose along with new dosing/recheck instruction 06/08/2024 Pulmonary embolism and infarction (ICD-10 - I26.99) 03/26/2024 Sinus symptom (ICD-10 - R09.89) side effects, risks, and benefits of medication reviewed; rest/fluids; check INR next week 03/22/2024 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 (ICD-10 - Z79.01) reviewed INR from today and current dose (3.75 mg MWF, 2.5 mg others) along with new dosing (same)/recheck instruction (2 weeks) 03/16/2024 Rash (ICD-10 - R21) resolved 03/16/2024 Elevated cholesterol (ICD-10 - E78.00) low fat/cholesterol diet reviewed 03/22/2024 Encounter for therapeutic drug level monitoring (ICD-10 - Z51.81) 11/09/2024 Sinus symptom (ICD-10 - R09.89) good control 03/16/2024 Irritant contact dermatitis due to metals (ICD-10 - L24.81) resolved 02/28/2025 Encounter for therapeutic drug level monitoring (ICD-10 - Z51.81) 02/14/2025 Encounter for therapeutic drug level monitoring (ICD-10 - Z51.81) 02/07/2025 Encounter for therapeutic drug level monitoring (ICD-10 - Z51.81) 01/04/2025 Encounter for therapeutic drug level monitoring (ICD-10 - Z51.81) 12/02/2024 Encounter for therapeutic drug level monitoring (ICD-10 - Z51.81) 08/04/2024 Encounter for therapeutic drug level monitoring (ICD-10 - Z51.81) 09/27/2024 Encounter for therapeutic drug level monitoring (ICD-10 - Z51.81) 07/21/2024 Encounter for therapeutic drug level monitoring (ICD-10 - Z51.81) 06/09/2024 Encounter for therapeutic drug level monitoring (ICD-10 - Z51.81) 04/06/2024 Encounter for therapeutic drug level monitoring (ICD-10 - Z51.81) 09/21/2024 Encounter for therapeutic drug level monitoring (ICD-10 - Z51.81) 07/27/2024 Encounter for therapeutic drug level monitoring (ICD-10 - Z51.81) 11/01/2024 Encounter for therapeutic drug level monitoring (ICD-10 - Z51.81) 11/09/2024 Pulmonary embolism (ICD-10 - I26.99) pt will need life long anticoagulation 03/16/2024 COVID-19 (ICD-10 - U07.1) resolved 03/16/2024 Pulmonary embolism (ICD-10 - I26.99) pt will need life long anticoagulation 11/09/2024 Elevated BP (ICD-10 - I10) low sodium diet reviewed; good control < 140/90 03/16/2024 Elevated BP (ICD-10 - I10) low sodium diet reviewed; good control < 140/90 11/09/2024 Impotence (ICD-10 - N52.9) stable 11/09/2024 Barretts esophagus (ICD-10 - K22.70) pt had EGD in 08/202303/16/2024 Impotence (ICD-10 - N52.9) stable 03/16/2024 Barretts esophagus (ICD-10 - K22.70) pt had EGD in 08/202311/09/2024 HEIDY (obstructive sleep apnea) (ICD-10 - G47.33) f/u with Dr Kramer 03/16/2024 HEIDY (obstructive sleep apnea) (ICD-10 - G47.33) f/u with Dr Kramre 11/09/2024 Diastolic dysfunction (ICD-10 - I51.9) consider beta-jasson 11/09/2024 Gross hematuria (ICD-10 - R31.0) pt to get UA/PSA, exam/CAROLINE with Dr Farmer 03/16/2024 Diastolic dysfunction (ICD-10 - I51.9) consider beta-jasson 11/09/2024 Callus of foot (ICD-10 - L84) f/u with Dr Linda lainez 03/16/2024 Gross hematuria (ICD-10 - R31.0) pt to get UA/PSA, exam/CAROLINE with Dr Farmer 03/16/2024 Callus of foot (ICD-10 - L84) f/u with Dr Linda lainez 11/09/2024 BMI 33.0-33.9,adult (ICD-10 - Z68.33) pt to minimize concentrated sweets/carbohydrat e in his diet 11/09/2024 Tobacco abuse, in remission (ICD-10 - F17.201) advised continued abstinence; repeat LDCT chest in 08/202503/16/2024 BMI 33.0-33.9,adult (ICD-10 - Z68.33) pt to minimize concentrated sweets/carbohydrat e in his diet 03/16/2024 Tobacco abuse, in remission (ICD-10 - F17.201) advised continued abstinence; repeat LDCT chest in 07/202411/09/2024 Major depression in remission (ICD-10 - F32.5) no acute sx; f/u with psych 03/16/2024 Anemia, unspecified type (ICD-10 - D64.9) check fobt x 3 - pt has not done it; consider heme w/u; resolved 11/09/2024 Pulmonary HTN (ICD-10 - I27.20) negative Dr Alvarez appt 03/16/2024 Major depression in remission (ICD-10 - F32.5) no acute sx; f/u with psych 11/09/2024 Pain, joint, knee, right (ICD-10 - M25.561) resolved 03/16/2024 Pulmonary HTN (ICD-10 - I27.20) negative Dr Alvarez appt 03/16/2024 Pain, joint, knee, right (ICD-10 - M25.561) ?OA; good control 11/09/2024 Other ILDA monthly; sa fe sex practice/sunscreen /seatbelt/helmet/c ondom use reviewed; see ophthy at least once q24 months/dentist at least once [id number]; exercise 4-5x/wk and follow healthy diet; pt declines checking hiv, hep c Plan Of Treatment Pending Test Test Name Order Date LDCT Chest 06/27/2022 US Carotid Duplex 07/06/2021 Future Test Test Name Order Date MRI : Brain with gadolinum 02/23/2014 Stool Occult Blood x3 (Screen) (Send Out ) 11/14/2017 Prothrombin Time (PT)-059521 06/08/2024 Prothrombin Time (PT)-034718 06/15/2024 Prothrombin Time (PT)-593087 06/22/2024 Prothrombin Time (PT)-656131 07/06/2024 Prothrombin Time (PT)-387824 07/20/2024 Prothrombin Time (PT)-957378 07/27/2024 Prothrombin Time (PT)-836495 08/10/2024 Prothrombin Time (PT)-268188 08/17/2024 Prothrombin Time (PT)-779391 08/24/2024 Prothrombin Time (PT)-600345 08/31/2024 Prothrombin Time (PT)-384171 09/14/2024 Prothrombin Time (PT)-884740 09/21/2024 Prothrombin Time (PT)-971763 10/05/2024 Prothrombin Time (PT)-887257 10/19/2024 Prothrombin Time (PT)-357512 10/26/2024 Prothrombin Time (PT)-924346 11/02/2024 Prothrombin Time (PT)-642278 11/09/2024 Prothrombin Time (PT)-710419 11/16/2024 Prothrombin Time (PT)-948886 01/11/2025 Prothrombin Time (PT)-000844 01/18/2025 Prothrombin Time (PT)-917348 01/25/2025 Prothrombin Time (PT)-498323 02/01/2025 Prothrombin Time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
== END 2025-03-15 15:00 | disposition home or self-care (01) ==
LOC: HO.HOP 14:09
PROVIDERS: PCP Internal Medicine; Visit Provider Psychiatry & Neurology Psychiatry
DX: F32.5 Major depressive disorder, single episode, in full remission (principal); F98.8 Other specified behavioral and emotional disorders with onset usually occurring in childhood and adolescence
CPT/HCPCS: 99214

== ENCOUNTER → 2025-03-15 14:09 | Outpatient (BNVA) | payer MEDICARE, SELFPAY | PROVIDERS: PCP Internal Medicine; Visit Provider Psychiatry & Neurology Psychiatry | DX: F32.5 Major depressive disorder, single episode, in full remission (principal); F98.8 Other specified behavioral and emotional disorders with onset usually occurring in childhood and adolescence | CPT/HCPCS: 99212 ==